=== PATIENT | female | born 1945 | race Native Hawaiian/Other Pacific Islander ===

== ENCOUNTER 2019-05-30 11:33 | Day surgery (SDC) | payer OTHER, MEDICARE ==
[~2019-05-30] VITALS: Ht 30.5 cm; Wt 0.5 kg
== END 2019-05-30 15:12 | disposition home or self-care (01) ==
LOC: OR 11:33
PROC: 3E0R33Z Introduction of Anti-inflammatory into Spinal Canal, Percutaneous Approach (ICD-10-PCS; principal; 2019-05-30)
PROC: B01BYZZ Fluoroscopy of Spinal Cord using Other Contrast (ICD-10-PCS; 2019-05-30)
DX: M51.16 Intervertebral disc disorders with radiculopathy, lumbar region (principal); M48.061 Spinal stenosis, lumbar region without neurogenic claudication
CPT/HCPCS: J1020

== ENCOUNTER 2019-07-11 09:26 | Day surgery (SDC) | payer OTHER, MEDICARE | END 2019-07-11 11:13 | disposition home or self-care (01) | LOC: OR 09:26 | PROC: 3E0R33Z Introduction of Anti-inflammatory into Spinal Canal, Percutaneous Approach (ICD-10-PCS; principal; 2019-07-11) | PROC: B01BYZZ Fluoroscopy of Spinal Cord using Other Contrast (ICD-10-PCS; 2019-07-11) | DX: M51.16 Intervertebral disc disorders with radiculopathy, lumbar region (principal) | CPT/HCPCS: J1020 ==